=== PATIENT | female | born 1985 | race Caucasian/White ===

== ENCOUNTER 2018-10-06 05:56 | Inpatient (IN) | payer BC ==
[~2018-10-06 05:56] MED LIST: Buffered Lidocaine 1% SYRIN* 1 ML/SYRINGE INTRADERM ONE
[2018-10-06] MEDS ORDERED: Sodium Citrate/Citric Acid* 15 ML UDC PO ONE (06:00)
[2018-10-06] MEDS ORDERED: Lactated Ringers 1000 ML Bag* 1,000 ML IV SCH ×2 (06:00→10:00)
[2018-10-06] MEDS ORDERED: ceFOXitin 2 GM IVPREMIX* 2 GM/50 ML BAG ONE (06:26)
[2018-10-06] MEDS ORDERED: Morphine PF AMP (0.5MG/ML)* 5 MG/10 ML AMP ONE (07:29)
[2018-10-06] MEDS ORDERED: Naloxone* 0.4 MG/ML 1 ML VIAL IV PRN ×2 (07:40→08:32)
[2018-10-06] MEDS ORDERED: fentaNYL* 50 MCG/ML 2 ML VIAL (100 MCG VIAL) IV PRN (07:40)
[2018-10-06] MEDS ORDERED: Nalbuphine* 10 MG/ML 1 ML VIAL IV PRN (08:32)
[2018-10-06] MEDS ORDERED: oxyCODONE/Acetamin 5/325 MG* TAB PO PRN (08:32)
[2018-10-06] MEDS ORDERED: Ondansetron INJ* 2 MG/ML VIAL IV PRN (08:32)
[2018-10-06] MEDS ORDERED: OXYTOCIN* 10 UNITS/ML 1 ML VIAL ONE (08:35)
[2018-10-06] MEDS ORDERED: Fluorescein 10% INJ* 100 MG/ML AMP ONE (08:54)
[2018-10-06] MEDS ORDERED: Glycerin ADULT SUPP PR PRN (09:26)
[2018-10-06] MEDS ORDERED: Zolpidem TAB* 5 MG PO PRN (09:26)
[2018-10-06] MEDS ORDERED: Acetaminophen TAB* 325 MG PO PRN (09:26)
[2018-10-06] MEDS ORDERED: Measles, Mumps,Rubella VACC* 0.5 ML/VIAL SUBCUT ONE (09:26)
[2018-10-06] MEDS ORDERED: Dibucaine 1% 28.35 GM TUBE PR PRN (09:26)
[2018-10-06] MEDS ORDERED: Witch Hazel PAD* JAR TOPICAL PRN (09:26)
[2018-10-06] MEDS ORDERED: Ibuprofen TAB* 600 MG PO PRN (09:26)
[2018-10-06] MEDS ORDERED: Oxytocin in LR* 20 UNITS/1,000 ML BAG IVPB ONE (09:35)
[2018-10-06] MEDS ORDERED: OXYTOCIN* 10 UNITS/ML 1 ML VIAL IV SCH (10:00)
[2018-10-06] MEDS ORDERED: Oxytocin in LR* 20 UNITS/1,000 ML BAG IVPB SCH (10:00)
[2018-10-06] MEDS: Simethicone TAB* 80 MG TAB.CHEW PO SCH ×3 (12:41→22:35)
[2018-10-06] MEDS: Docusate CAP* 100 MG PO SCH ×2 (13:54→22:34)
[2018-10-06] MEDS: Ibuprofen TAB* 400 MG PO SCH ×3 (15:14→22:34)
[2018-10-07] MEDS ORDERED: oxyCODONE/Acetamin 5/325 MG* TAB PO PRN (00:32)
[2018-10-07] MEDS: oxyCODONE/Acetamin 5/325 MG* TAB PO PRN ×4 (04:04→23:55)
[2018-10-07] MEDS: Simethicone TAB* 80 MG TAB.CHEW PO SCH ×4 (07:45→20:37)
[2018-10-07] MEDS: Ibuprofen TAB* 400 MG PO SCH (07:45)
[2018-10-07] MEDS: Docusate CAP* 100 MG PO SCH ×3 (07:45→20:37)
[2018-10-07 08:20] LABS: ABS Eosinophils 0.1 10^3/ul (0-0.6); ABS Lymphocytes 1.8 10^3/ul (1.0-4.8); ABS Monocytes 0.8 10^3/ul (0-0.8); ABS Neutrophils 8.6 10^3/ul (1.5-7.7); Eosinophil % 1.1 %; Hematocrit 35 % (35-47); Hemoglobin 11.4 g/dL (12.0-16.0); Lymphocyte % 16.1 %; Mean Corpuscular HGB Conc 33 g/dL (31-36); Mean Corpuscular Hemoglobin 28 pg (27-31); Mean Corpuscular Volume 84 fL (80-97); Mean Platelet Volume 8.1 fL (7.4-10.4); Platelet Count 282 10^3/uL (150-450); Red Blood Count 4.12 10^6 /uL (3.70-4.87); Red Cell Distribution Width 13 % (10.5-15); White Blood Count 11.3 10^3/uL (3.5-10.8)
[2018-10-07] MEDS ORDERED: Ferrous Gluconate TAB* 324 MG TAB PO SCH (09:00)
[2018-10-07] MEDS: Ibuprofen TAB* 600 MG PO PRN ×2 (14:35→20:37)
[2018-10-08] MEDS: Ibuprofen TAB* 600 MG PO PRN ×3 (03:53→18:10)
[2018-10-08] MEDS: Docusate CAP* 100 MG PO SCH ×3 (08:41→20:08)
[2018-10-08] MEDS: oxyCODONE/Acetamin 5/325 MG* TAB PO PRN ×3 (08:41→20:08)
[2018-10-08] MEDS: Simethicone TAB* 80 MG TAB.CHEW PO SCH ×4 (08:41→20:08)
[2018-10-08 20:24] VITALS: BP 128/81
[2018-10-09] MEDS: oxyCODONE/Acetamin 5/325 MG* TAB PO PRN ×2 (00:01→06:25)
[2018-10-09] MEDS: Ibuprofen TAB* 600 MG PO PRN ×2 (06:25)
[2018-10-09] MEDS: Simethicone TAB* 80 MG TAB.CHEW PO SCH (14:28)
[2018-10-09] MEDS: Docusate CAP* 100 MG PO SCH (14:29)
--- NOTE | 2018-10-23 13:46 | OP ---
DATE OF OPERATION: 10/06/18 - ROOM #115 DATE OF : 83 SURGEON: Ang Patel MD ASSISTANTS: Dr. Santoyo and Gwen Thompson CNM. ANESTHESIA: Spinal. PRE-OP DIAGNOSIS: Anxiety surrounding . POST-OP DIAGNOSIS: Anxiety surrounding . OPERATIVE PROCEDURE: Low transverse section. ESTIMATED BLOOD LOSS: 600 cc. FINDINGS: Include a viable female. Apgars 8 and 9. Weight was 7 pounds 8 ounces. Normal-appearing uterus, fallopian tubes, and ovaries. with a patent urachus. DESCRIPTION OF PROCEDURE: The patient was identified and procedure identified as a low transverse section. The patient was taken to the operating room, prepped and draped in usual fashion in the left lateral recumbent position under spinal anesthesia. A Pfannenstiel incision was made through the abdomen and carried down through fat, fascia, and peritoneum. The incision was made wider by cutting through the area that appeared to be urachus at the time of surgery. A transverse incision was made in the lower uterine segment and extended laterally using blunt dissection. The above was delivered through the incision with ease. Cord was doubly clamped and cut, and the was handed to the awaiting film sound coordinator. Cord blood was obtained. Placenta delivered spontaneously. Uterus was wiped out with wet lap sponge. The uterine incision was then closed using 0 Polysorb in a running fashion and a second layer was used to imbricate the first layer. Good hemostasis was verified. The uterus was placed back in the abdominal cavity. The intraperitoneal space was found to be hemostatic. Upon closure of the peritoneum, the patent urachus was noted. Concerns over how well formed this was and whether it might be the ureter was discussed. Urology was called. It was discussed with the Urology and given its location it was seemed unlikely that this was the case. The proximal end of the urachus was cut and again no urine was seen to come out, and because of the discussion with Urology and evaluation, decision was made to proceed with closure of the peritoneum, which was done with 3-0 Polysorb. The subrectus layers were found to be hemostatic. The fascia was closed using 0 Polysorb in a running fashion. Good hemostasis was achieved in the subcu. Copious irrigation was utilized and suctioned out, and the skin was closed with 4-0 Monocryl in a subcuticular fashion. All sponge and instrument counts were correct. The patient returned to the recovery room in stable condition. Ultrasound was obtained postop to assess the uterus, which was found to be clear. [id number]/[facility] [place] #: [id number] MTDD
== END 2018-10-09 10:15 | disposition home or self-care (01) | DRG 540 ==
LOC: MCHOB 05:56
PROVIDERS: ADMIT Obstetrics & Gynecology; ATTEND Obstetrics & Gynecology
PROC: 10D00Z1 Extraction of Products of Conception, Low, Open Approach (ICD-10-PCS; principal; 2018-10-06 07:45)
DX: O99.344 Other mental disorders complicating childbirth (principal); F41.9 Anxiety disorder, unspecified; Z3A.39 39 weeks gestation of pregnancy; Z37.0 Single live birth
CPT/HCPCS: 36415; 76775; 85025; 90707; A9270-GY; J0694; J2300; J2405; J2590